=== PATIENT | male | born 1965 | race Caucasian/White ===

== ENCOUNTER 2017-07-15 11:13 | Outpatient (CLI) | payer OTHER ==
[~2017-07-15 11:13] MED LIST: ASPI81TA52 PO; DAPA5TAB PO; LEVO750T21 PO; LISI-642 PO; METF500T PO
[2017-07-15 11:36] LABS: CLARITY,URINE CLEAR (Clear); COLOR,URINE STRAW (Yellow); GLUCOSE, URINE >=1000 mg/dl (Neg); KETONES,URINE NEGATIVE (Neg); LEUKOCYTE ESTERASE ,URINE NEGATIVE (Neg); NITRITES, URINE NEGATIVE (Neg); OCCULT BLOOD,URINE NEGATIVE (Neg); PROTEIN,URINE NEGATIVE (Neg); UROBILINOGEN,URINE 0.2 E.U/dL (0.2-1.0)
[2017-07-15 11:37] LABS: UA COLLECTION TYPE NON-SPECIFIED
[2017-07-15 11:50] LABS: BACTERIA,URINE FEW /HPF (Neg); RBC,URINE 0-2 /HPF (0-2); SQUAMOUS EPITHELIAL CELL,UR FEW /LPF (FEW); WBC,URINE 0-4 /HPF (0-4)
[2017-07-15 11:52] LABS: ALANINE AMINOTRANSFERASE 32 U/L (12-78); ALBUMIN 4.2 G/DL (3.4-5.0); ALBUMIN/GLOBULIN RATIO 1.3 (1.1-1.5); ALKALINE PHOSPHATASE 55 IU/L (46-116); ANION GAP 9 (8-16); ASPARTATE AMINO TRANSFERASE 15 U/L (10-37); BILIRUBIN,TOTAL 0.6 MG/DL (0.1-1.0); BLOOD UREA NITROGEN 14 MG/DL (7-18); BUN/CREATININE RATIO 16.9 (5.4-32.0); CALCIUM 8.8 MG/DL (8.5-10.1); CHLORIDE 106 MMOL/L (99-107); CHOL/HDL RATIO 4.1 (0.00-4.99); CHOLESTEROL 138 MG/DL (0-200); CREATININE 0.83 MG/DL (0.60-1.10); GLUCOSE 159 MG/DL (70-104); HDL CHOLESTEROL 34 MG/DL (35-60); LDL CHOLESTEROL 76 MG/DL (50-100); POTASSIUM 4.3 MMOL/L (3.5-5.1); SODIUM 140 MMOL/L (135-145); TOTAL CARBON DIOXIDE 25.2 MMOL/L (24-32); TOTAL PROTEIN 7.4 G/DL (6.4-8.2); TRIGLYCERIDES 196 MG/DL (20-135); eGFR > 90 ML/MIN
== END 2017-07-15 23:59 | disposition home or self-care (01) ==
LOC: LAB 11:13
PROVIDERS: ATTEND Nurse Practitioner Family
DX: E11.8 Type 2 diabetes mellitus with unspecified complications (principal); I10 Essential (primary) hypertension; E78.5 Hyperlipidemia, unspecified
CPT/HCPCS: 36415; 80053; 80061; 81001

== ENCOUNTER 2019-05-01 11:39 | Outpatient (CLI) | payer OTHER ==
[2019-05-01 12:21] LABS: BASOPHILS % (AUTO) 0.7 % (0-1); EOSINOPHILS # (AUTO) 0.3 X10'3 (0-0.9); HEMATOCRIT 43.8 % (42.0-52.0); HEMOGLOBIN 14.8 g/dl (14.0-17.9); LYMPHOCYTES # (AUTO) 1.4 X10'3 (1.1-4.8); LYMPHOCYTES % (AUTO) 26.3 % (21-51); MEAN CORPUSCULAR HEMOGLOBIN 30.8 PG (27.0-31.0); MEAN CORPUSCULAR HGB CONC 33.8 g/dL (33.0-36.5); MEAN CORPUSCULAR VOLUME 91.2 FL (78-98); MEAN PLATELET VOLUME 9.8 FL (7.4-10.4); MONOCYTES # (AUTO) 0.4 X10'3 (0-0.9); NEUTROPHILS # (AUTO) 3.3 X10'3 (1.8-7.7); PLATELET COUNT 180 X10'3 (140-440); RED CELL DISTRIBUTION WIDTH 14.7 % (11.5-14.5); WHITE BLOOD COUNT 5.4 X10'3 (4.5-11.0)
[2019-05-01 12:24] LABS: CLARITY,URINE CLEAR (Clear); COLOR,URINE YELLOW (Yellow); GLUCOSE, URINE >=1000 mg/dl (Neg); KETONES,URINE NEGATIVE (Neg); LEUKOCYTE ESTERASE ,URINE NEGATIVE (Neg); NITRITES, URINE NEGATIVE (Neg); OCCULT BLOOD,URINE NEGATIVE (Neg); PROTEIN,URINE NEGATIVE (Neg); UROBILINOGEN,URINE 0.2 E.U/dL (0.2-1.0)
[2019-05-01 12:32] LABS: UA COLLECTION TYPE CLN CATCH MIDSTREAM
[2019-05-01 12:45] LABS: ALANINE AMINOTRANSFERASE 34 U/L (12-78); ALBUMIN/GLOBULIN RATIO 1.1 (1.1-1.5); ALKALINE PHOSPHATASE 56 IU/L (46-116); ANION GAP 8 (8-16); ASPARTATE AMINO TRANSFERASE 20 U/L (10-37); BILIRUBIN,TOTAL 0.4 MG/DL (0.1-1.0); BLOOD UREA NITROGEN 15 MG/DL (7-18); BUN/CREATININE RATIO 19.2 (5.4-32.0); CALCIUM 8.7 MG/DL (8.5-10.1); CHLORIDE 106 MMOL/L (99-107); CHOL/HDL RATIO 4.1 (0.00-4.99); CHOLESTEROL 118 MG/DL (0-200); CREATININE 0.78 MG/DL (0.60-1.10); GLUCOSE 105 MG/DL (70-104); HDL CHOLESTEROL 29 MG/DL (35-60); LDL CHOLESTEROL 61 MG/DL (50-100); POTASSIUM 4.3 MMOL/L (3.5-5.1); SODIUM 139 MMOL/L (135-145); TOTAL CARBON DIOXIDE 24.7 MMOL/L (24-32); TOTAL PROTEIN 7.5 G/DL (6.4-8.2); TRIGLYCERIDES 189 MG/DL (20-135); eGFR > 90 ML/MIN
[2019-05-01 12:59] LABS: SQUAMOUS EPITHELIAL CELL,UR NONE SEEN /LPF (FEW)
[2019-05-01 13:00] LABS: BACTERIA,URINE NONE SEEN /HPF (Neg); RBC,URINE NONE SEEN /HPF (0-2); WBC,URINE NONE SEEN /HPF (0-4)
== END 2019-05-01 23:59 | disposition home or self-care (01) ==
LOC: LAB 11:39
PROVIDERS: ATTEND Family Medicine
DX: I10 Essential (primary) hypertension (principal); E11.8 Type 2 diabetes mellitus with unspecified complications; E78.5 Hyperlipidemia, unspecified
CPT/HCPCS: 36415; 80053; 80061; 81001; 84439; 84443; 85025

== ENCOUNTER 2020-10-17 11:58 | Outpatient (CLI) | payer BC ==
[2020-10-17 12:41] LABS: BASOPHILS % (AUTO) 0.8 % (0-1); CLARITY,URINE CLEAR (Clear); COLOR,URINE YELLOW (Yellow); EOSINOPHILS # (AUTO) 0.2 X10'3 (0-0.9); GLUCOSE, URINE >=1000 mg/dl (Neg); HEMATOCRIT 43.6 % (42.0-52.0); HEMOGLOBIN 14.5 g/dl (14.0-17.9); KETONES,URINE NEGATIVE (Neg); LEUKOCYTE ESTERASE ,URINE NEGATIVE (Neg); LYMPHOCYTES # (AUTO) 1.4 X10'3 (1.1-4.8); LYMPHOCYTES % (AUTO) 26.7 % (21-51); MEAN CORPUSCULAR HEMOGLOBIN 30.6 PG (27.0-31.0); MEAN CORPUSCULAR HGB CONC 33.2 g/dL (33.0-36.5); MEAN CORPUSCULAR VOLUME 92.2 FL (78-98); MEAN PLATELET VOLUME 9.1 FL (7.4-10.4); MONOCYTES # (AUTO) 0.4 X10'3 (0-0.9); MONOCYTES % (AUTO) 7.3 % (2-12); NEUTROPHILS # (AUTO) 3.2 X10'3 (1.8-7.7); NEUTROPHILS % (AUTO) 61.2 % (42-75); NITRITES, URINE NEGATIVE (Neg); OCCULT BLOOD,URINE NEGATIVE (Neg); PLATELET COUNT 180 X10'3 (140-440); PROTEIN,URINE NEGATIVE (Neg); RED BLOOD COUNT 4.73 X10'6 (4.70-6.10); UROBILINOGEN,URINE 0.2 E.U/dL (0.2-1.0); WHITE BLOOD COUNT 5.2 X10'3 (4.5-11.0)
[2020-10-17 12:44] LABS: UA COLLECTION TYPE CLN CATCH MIDSTREAM
[2020-10-17 12:46] LABS: SQUAMOUS EPITHELIAL CELL,UR FEW /LPF (FEW)
[2020-10-17 12:47] LABS: BACTERIA,URINE NONE SEEN /HPF (Neg); RBC,URINE NONE SEEN /HPF (0-2); WBC,URINE 0-4 /HPF (0-4)
[2020-10-17 13:03] LABS: ALANINE AMINOTRANSFERASE 26 U/L (12-78); ALBUMIN 4.1 G/DL (3.4-5.0); ALBUMIN/GLOBULIN RATIO 1.4 (1.1-1.5); ALKALINE PHOSPHATASE 51 IU/L (46-116); ANION GAP 9 (8-16); ASPARTATE AMINO TRANSFERASE 12 U/L (10-37); BILIRUBIN,TOTAL 0.5 MG/DL (0.1-1.0); BLOOD UREA NITROGEN 12 MG/DL (7-18); BUN/CREATININE RATIO 14.8 (5.4-32.0); CALCIUM 9.1 MG/DL (8.5-10.1); CHLORIDE 110 MMOL/L (99-107); CHOL/HDL RATIO 3.7 (0.00-4.99); CHOLESTEROL 138 MG/DL (0-200); CREATININE 0.81 MG/DL (0.60-1.10); GLUCOSE 106 MG/DL (70-104); HDL CHOLESTEROL 37 MG/DL (35-60); LDL CHOLESTEROL 84 MG/DL (50-100); POTASSIUM 4.3 MMOL/L (3.5-5.1); SODIUM 144 MMOL/L (135-145); TOTAL CARBON DIOXIDE 25.5 MMOL/L (24-32); TOTAL PROTEIN 7.1 G/DL (6.4-8.2); TRIGLYCERIDES 86 MG/DL (20-135); eGFR > 90 ML/MIN
== END 2020-10-17 23:59 | disposition home or self-care (01) ==
LOC: LAB 11:58
PROVIDERS: ATTEND Family Medicine
DX: I10 Essential (primary) hypertension (principal); E11.8 Type 2 diabetes mellitus with unspecified complications; E78.5 Hyperlipidemia, unspecified
CPT/HCPCS: 36415; 80053; 80061; 81001; 84439; 84443; 85025

== ENCOUNTER 2021-03-18 07:12 | Outpatient (CLI) | payer BC | END 2021-03-18 23:59 | disposition home or self-care (01) | LOC: RAD 07:12 | PROVIDERS: ATTEND Family Medicine | DX: M19.012 Primary osteoarthritis, left shoulder (principal); M25.522 Pain in left elbow | CPT/HCPCS: 73030; 73080 ==

== ENCOUNTER 2022-06-23 06:40 | Day surgery (SDC) | payer BC ==
[~2022-06-23] VITALS: Ht 182.9 cm; Wt 103.6 kg
[2022-06-23 06:48] VITALS: BP 137/90
[2022-06-23] MEDS ORDERED: diphenhydrAMINE 50 mg/ml inj ONE (06:51)
[2022-06-23] MEDS ORDERED: MIDAZolam 1 MG/ML 5ML VIAL ONE (06:51)
[2022-06-23] MEDS ORDERED: FENTANYL CITRATE/PF 50 MCG/1 ML VIAL ONE (06:51)
[2022-06-23] MEDS ORDERED: DULA1.5P (06:53)
[2022-06-23] MEDS ORDERED: SIMV40TA PO (06:53)
[2022-06-23] MEDS ORDERED: INSU100V54 (06:53)
[2022-06-23 08:08] VITALS: BP 118/83
[2022-06-23 08:18] VITALS: BP 122/80
[2022-06-23 08:28] VITALS: BP 134/82
== END 2022-06-23 08:34 | disposition home or self-care (01) ==
LOC: GI LAB 06:40
PROVIDERS: ATTEND Internal Medicine Gastroenterology
DX: Z12.11 Encounter for screening for malignant neoplasm of colon (principal); Z79.899 Other long term (current) drug therapy; I10 Essential (primary) hypertension; E78.5 Hyperlipidemia, unspecified; K62.1 Rectal polyp
CPT/HCPCS: 45385; 99152; 99153; J2250; J3010; J7030; Z7512; A4620; C1889; J1200

== ENCOUNTER 2023-07-29 11:06 | Outpatient (CLI) | payer BC ==
[~2023-07-29 11:06] MED LIST changes: +DULA1.5P; +INSU100V54; -LEVO750T21 PO; +SIMV-343 PO
[2023-07-29 12:23] LABS: ALANINE AMINOTRANSFERASE 28 U/L (12-78); ALBUMIN 3.7 G/DL (3.4-5.0); ALKALINE PHOSPHATASE 58 IU/L (46-116); ANION GAP 9 (8-16); ASPARTATE AMINO TRANSFERASE 16 U/L (10-37); BILIRUBIN,TOTAL 0.3 MG/DL (0.1-1.0); BLOOD UREA NITROGEN 11 MG/DL (7-18); BUN/CREATININE RATIO 13.4 (10.0-20.0); CALCIUM 8.7 MG/DL (8.5-10.1); CHLORIDE 107 MMOL/L (99-107); CHOL/HDL RATIO 4.2 (0.00-4.99); CHOLESTEROL 151 MG/DL (0-200); CREATININE 0.82 MG/DL (0.60-1.10); GLUCOSE 146 MG/DL (70-104); HDL CHOLESTEROL 36 MG/DL (35-60); LDL CHOLESTEROL 76 MG/DL (50-100); POTASSIUM 4.2 MMOL/L (3.5-5.1); SODIUM 142 MMOL/L (135-145); TOTAL CARBON DIOXIDE 25.7 MMOL/L (24-32); TOTAL PROTEIN 7.3 G/DL (6.4-8.2); TRIGLYCERIDES 200 MG/DL (20-135); eGFR > 90 ML/MIN
[2023-07-30 11:31] LABS: CREATININE, URINE 70.9 mg/dL (Not Estab.); MICROALBUMIN,U,RANDOM 5.2 ug/mL (Not Estab.)
== END 2023-07-29 23:59 | disposition home or self-care (01) ==
LOC: LAB 11:06
PROVIDERS: ATTEND Family Medicine
DX: E11.8 Type 2 diabetes mellitus with unspecified complications (principal)
CPT/HCPCS: 36415; 80053; 80061; 82043; 82570

== ENCOUNTER → 2023-12-30 | Outpatient (CLI) | payer BC ==
[2023-12-30 08:07] LABS: CHOL/HDL RATIO 3.9 (0.00-4.99); CHOLESTEROL 142 MG/DL (0-200); HDL CHOLESTEROL 36 MG/DL (35-60); LDL CHOLESTEROL 70 MG/DL (50-100); TRIGLYCERIDES 254 MG/DL (20-135)
== END | disposition home or self-care (01) ==
LOC: LAB 07:15
PROVIDERS: ATTEND Nurse Practitioner Family
DX: E78.49 Other hyperlipidemia (principal)
CPT/HCPCS: 36415; 80061

== ENCOUNTER 2024-05-02 06:51 | Emergency (ER) | payer BC ==
[~2024-05-02] VITALS: Ht 182.9 cm; Wt 102.7 kg
[2024-05-02 06:54] VITALS: BP 121/73; PULSE 84; RESP 18; TEMP 97; O2SAT 97
[2024-05-02] MEDS ORDERED: AZIT500T9 PO (08:02)
== END 2024-05-02 08:36 | disposition home or self-care (01) ==
LOC: ER 06:51
DX: J06.9 Acute upper respiratory infection, unspecified (principal); E11.9 Type 2 diabetes mellitus without complications; I10 Essential (primary) hypertension; Z20.822 Contact with and (suspected) exposure to COVID-19; Z79.2 Long term (current) use of antibiotics; Z79.82 Long term (current) use of aspirin; Z79.84 Long term (current) use of oral hypoglycemic drugs
CPT/HCPCS: 36415; 87811; 99283

== ENCOUNTER 2025-03-08 08:15 | Outpatient (CLI) | payer BC ==
[~2025-03-08 08:15] MED LIST changes: +AZIT500T9 PO
[2025-03-08 09:11] LABS: LEUKOCYTE ESTERASE ,URINE NEGATIVE (Neg); NITRITES, URINE NEGATIVE (Neg); OCCULT BLOOD,URINE NEGATIVE (Neg)
[2025-03-08 09:11] LABS: MEAN PLATELET VOLUME 9.4 FL (7.4-10.4); RED CELL DISTRIBUTION WIDTH 15.6 % (11.5-14.5)
[2025-03-08 09:12] LABS: UA COLLECTION TYPE CLN CATCH MIDSTREAM
[2025-03-08 09:22] LABS: SQUAMOUS EPITHELIAL CELL,UR FEW /LPF (FEW)
[2025-03-08 09:26] LABS: MUCUS STRANDS FEW /LPF (Neg)
--- NOTE | 2025-03-08 09:38 | RADIOLOGY REPORT ---
Bilateral HIP RADIOGRAPH. CLINICAL INDICATION: NEUROPATHY; SCIATICA OF LEFT SIDE TECHNIQUE: 4 views of the bilaterla hip were obtained. FINDINGS: There is no evidence of fracture, subluxation or dislocation.The alignment is within normal limits.The bony mineralization is normal.No radiopaque foreign body is identified. IMPRESSION: Mild bilateral hip osteoarthritis
--- NOTE | 2025-03-08 09:39 | RADIOLOGY REPORT ---
INDICATION: NEUROPATHY; SCIATICA OF LEFT SIDE COMPARISON: None TECHNIQUE: 3 views of the lumbar spine were obtained. FINDINGS: The lumbar vertebral alignment is normal. The intervertebral disc spaces are well-maintained. No significant facet arthropathy is noted. No acute fracture, vertebral compression deformity or aggressive osseous lesions. The paravertebral soft tissues are grossly unremarkable. IMPRESSION: Multilevel degenerative changes most severe at L4-L5 through L5-S1 causing mild spinal canal and neur al foraminal stenosis.
[2025-03-08 09:52] LABS: CHOL/HDL RATIO 4.3 (0.00-4.99); CREATININE 0.85 MG/DL (0.60-1.10); LDL CHOLESTEROL 82 MG/DL (50-100); TOTAL CARBON DIOXIDE 27.0 MMOL/L (24-32); eGFR > 90 ML/MIN
[2025-03-10 05:13] LABS: PSA, ULTRASENSITIVE W/O SERIAL 0.574 ng/mL (0.000-4.000); TESTOSTERONE, SERUM 224 ng/dL (264-916)
[2025-03-10 13:12] LABS: CREATININE, URINE 65.7 mg/dL (Not Estab.)
[2025-03-10 15:20] LABS: MICROALB/CRT, RATIO <5 mg/g creat (0-29); MICROALBUMIN,U,RANDOM <3.0 ug/mL (Not Estab.)
[2025-03-14 09:19] LABS: TESTOSTERONE, FREE, DIRECT 5.6 pg/mL (6.6-18.1)
== END 2025-03-08 23:59 | disposition home or self-care (01) ==
LOC: RAD 08:15
PROVIDERS: ATTEND Nurse Practitioner Family
DX: G62.9 Polyneuropathy, unspecified (principal); E78.49 Other hyperlipidemia; Z00.01 Encounter for general adult medical examination with abnormal findings; I10 Essential (primary) hypertension; Z00.00 Encounter for general adult medical examination without abnormal findings; M54.32 Sciatica, left side
CPT/HCPCS: 36415; 72110; 73502; 80053; 80061; 81001; 82043; 82570; 84153; 84402; 84403; 84439; 84443; 85025

== ENCOUNTER → 2025-05-04 | Outpatient (CLI) | payer BC ==
--- NOTE | 2025-05-04 10:50 | RADIOLOGY REPORT ---
DI CHEST,TWO VIEWS CLINICAL HISTORY: BRONCHITIS COMPARISON: None TECHNIQUE: Frontal and lateral view of the chest was obtained FINDINGS: Lines and Tubes: None Lungs: No focal consolidation. Pleura: No effusion. No pneumothorax. Cardiomediastinal contours: Unremarkable Bones: No acute osseous abnormality. IMPRESSION: Findings compatible with bronchiolitis.
== END | disposition home or self-care (01) ==
LOC: RAD 09:56
PROVIDERS: ATTEND Nurse Practitioner Family
DX: J40 Bronchitis, not specified as acute or chronic (principal); U09.9 Post COVID-19 condition, unspecified
CPT/HCPCS: 71046

== ENCOUNTER 2025-07-09 07:57 | Outpatient (CLI) | payer BC ==
[2025-07-10 06:34] LABS: TESTOSTERONE, SERUM 278 ng/dL (264-916)
[2025-07-11 06:00] LABS: TESTOSTERONE, FREE, DIRECT 10.6 pg/mL (6.6-18.1)
== END 2025-07-09 23:59 | disposition home or self-care (01) ==
LOC: RAD 07:57
PROVIDERS: ATTEND Student in an Organized Health Care Education/Training Program
DX: R79.89 Other specified abnormal findings of blood chemistry (principal)
CPT/HCPCS: 36415; 84402; 84403